=== PATIENT | male | born 1965 | race Caucasian/White ===

== ENCOUNTER 2020-01-15 12:49 | Emergency (ER) | payer BC ==
[~2020-01-15] VITALS: Ht 175.3 cm; Wt 91.6 kg
[2020-01-15 13:18] VITALS: Ht 175.3 cm; Wt 91.6 kg
[2020-01-15 14:10] LABS: BASOPHIL % 0.6 % (0-2); PLATELET COUNT 209 x10^3mcL (130-400); RED CELL DISTRIBUTION WIDTH 12.8 % (11.5-14.5)
[2020-01-15 14:34] LABS: CALCIUM 9.4 mg/dL (8.5-10.1); CARBON DIOXIDE 27.6 mmol/L (21-32); CHLORIDE SERUM 101 mmol/L (98-107); CREATININE SERUM 1.1 mg/dL (0.7-1.3); GFR1 > 60 mL/min; GLUCOSE SERUM 107 mg/dL (74-106); SODIUM SERUM 137 mmol/L (136-145)
[2020-01-15 14:38] LABS: ALKALINE PHOSPHATASE 76 U/L (46-116); ALT/SGPT 60 U/L (16-63); AST/SGOT 17 U/L (15-37); BILIRUBIN TOTAL 0.99 mg/dL (0.20-1.00); LIPASE 78 IU/L (73-393); TOTAL PROTEIN, SERUM 8.1 g/dL (6.4-8.2)
[2020-01-15 14:50] LABS: microscopic required? NO
[2020-01-15 15:03] LABS: UA SPECIFIC GRAVITY 1.015 (1.005-1.035); urine erythrocyte NEGATIVE (NEGATIVE)
[2020-01-15 15:29] VITALS: BP 122/73
== END 2020-01-15 15:29 | disposition home or self-care (01) ==
LOC: ED 12:49
PROVIDERS: Emergency Medicine
DX: K57.92 Diverticulitis of intestine, part unspecified, without perforation or abscess without bleeding (principal); I10 Essential (primary) hypertension
CPT/HCPCS: J2405; J3010; J7030